=== PATIENT | male | born 1970 | race Caucasian/White ===

== ENCOUNTER 2017-07-22 15:13 | Outpatient (CLI) | payer OTHER ==
[~2017-07-22 15:13] MED LIST: BENADRYL50 MG; CEPHALEXIN500 MG PO; IOPHEN DM-100 MG/5 M PO; PANADOL EXTRA500 MG; PARAFON FORTE500 MG PO; ZITHROMAX PO
== END 2017-07-22 15:25 | disposition home or self-care (01) ==
LOC: RAD 501 15:13
DX: M25.512 Pain in left shoulder (principal)

== ENCOUNTER 2021-12-16 18:05 | Emergency (ER) | payer OTHER ==
[~2021-12-16] VITALS: Ht 167.6 cm; Wt 77.1 kg
== END 2021-12-16 22:07 | disposition home or self-care (01) ==
LOC: ER 18:05
DX: S09.90XA Unspecified injury of head, initial encounter (principal); W18.30XA Fall on same level, unspecified, initial encounter; Y93.9 Activity, unspecified; Y92.019 Unspecified place in single-family (private) house as the place of occurrence of the external cause; Y99.9 Unspecified external cause status

== ENCOUNTER 2023-03-30 17:03 | Emergency (ER) | payer OTHER ==
[~2023-03-30] VITALS: Ht 167.6 cm; Wt 77.6 kg
== END 2023-03-30 21:23 | disposition home or self-care (01) ==
LOC: ER 17:03
DX: S89.90XA Unspecified injury of unspecified lower leg, initial encounter (principal); W22.8XXA Striking against or struck by other objects, initial encounter; Y93.9 Activity, unspecified; Y92.9 Unspecified place or not applicable; Y99.9 Unspecified external cause status